=== PATIENT | female | born 1975 | race Caucasian/White ===

== ENCOUNTER 2022-03-11 14:20 | Emergency (ER) | payer MEDICAID, SELFPAY ==
[2022-03-11 14:26] VITALS: BP 143/90; PULSE 118; RESP 16; TEMP 36.5; O2SAT 97
[2022-03-11 14:36] LABS: Bilirubin Small (Negative); Blood Large (Negative); Clarity Clear (Clear); Glucose Negative (Negative); Ketones 40 mg/dL (Negative); Leukocyte Esterase Negative (Negative); Nitrite Negative (Negative); Specific Gravity >= 1.030 (1.005-1.025); Urobilinogen 0.2 EU/dL (Up TO 0.2)
--- NOTE | 2022-03-11 14:39 | ED.GENADUL_ITS ---
Discharge Plan Disposition Patient Disposition: STILL A PATIENT Discharge Details Chief Complaint: Abd Prob Primary Care Provider: Tan Fisher ED Provider: Wayne Ndiaye Home Meds and New Rx's Prescriptions: No Action No Known Home Meds 0RF Medical Decision Making 46-year-old female reports diffuse abdominal pain, nausea, vomiting, diarrhea, intermittent cramping since , ate half a hamburger that day but did not believe the food was bad. She took [id number] Pepto-Bismol yesterday. No vomiting today. Denies patient's exposures. She states that this occurs occasionally every couple of years, has been seen in the ER previously, but after discharge and feeling better has never followed up with a GI specialist. She denies recent illness or trauma, fever, chest pain, shortness of breath, back pain, dysuria, constipation, black tarry stools or bright red blood in her stools. She reports at the moment she has no cramping abdominal pain but it comes in waves. Plan is to obtain IV access, screening laboratory values, IV fluid and Zofran. We will need to monitor her tachycardia, symptoms, and may require imaging. Laboratory values reveal minor, nonspecific leukocytosis of 11.44. Creatinine 1.2 with a GFR of 48.58. 40 ketones, large blood, 20-50 red cells. Patient does report that she currently has her menstrual cycle. Denies history of renal stone. Will provide another liter of IV fluids, Toradol, Bentyl as she reports cramping is persistent. Given her persistent tachycardia, leukocytosis, will obtain CT imaging Medical Records Medical records reviewed: Yes I reviewed the patient's medical records. Lab Data Lab results reviewed: Yes I reviewed the patient's lab results. Labs: Laboratory Tests Range/Units 03/11/22 03/11/22 03/11/22 14:28 14:33 14:33 WBC (4.4-10.8) 10^3/uL 11.44 H RBC (3.93-5.22) 10^6/uL 4.60 Hgb (11.2-15.7) g/dL 15.3 Hct (36.0-46.0) % 44.8 MCV (80-95) fL 97.4 H MCH (27.0-33.0) pg 33.3 H MCHC (32.0-36.0) % 34.2 RDW (11.7-14.6) % 12.5 Plt Count (130-400) 10^3/uL 259 MPV (8.0-11.0) fL 9.5 Immature Gran % 0.3 Neutrophils % 71.6 Lymphocytes % 19.3 Monocytes % 6.1 Eosinophils % 2.5 Basophils % 0.2 Nucleated RBC % (0.0-0.3) % 0.0 Absolute Neutrophils (1.2-6.7) 10^3/uL 8.19 H Absolute Lymphocytes (1.2-3.4) 10^3/uL 2.21 Absolute Monocytes (0.1-0.8) 10^3/uL 0.70 Absolute Eosinophils (0.0-0.7) 10^3/uL 0.29 Absolute Basophils (0.0-0.2) 10^3/uL 0.02 Sodium (136-145) mmol/L 137 Potassium (3.5-5.1) mmol/L 3.7 Chloride (98-107) mmol/L 102 Carbon Dioxide (21.0-32.0) mmol/L 24.1 Anion Gap (3-11) mmol/L 10.9 BUN (7-18) mg/dL 10 Creatinine (0.55-1.02) mg/dL 1.2 H Estimated GFR/1.73 m2 (mL/min/1.73m2) 48.58 Glucose (74-106) mg/dL 114 H Calcium (8.5-10.1) mg/dL 8.8 Total Bilirubin (0.2-1.0) mg/dL 0.5 AST (15-37) U/L 19 ALT (14-59) U/L 34 Alkaline Phosphatase (46-116) U/L 61 Total Protein (6.4-8.2) g/dL 7.5 Albumin (3.4-5.0) g/dL 3.6 Lipase (73-393) U/L 51 Urine Color (Yellow) Yellow Urine Clarity (Clear) Clear Urine pH (5-8) 6.0 Ur Specific [place] (1.005-1.025) >= 1.030 H Urine Protein (Negative) mg/dL 30 H Urine Ketones (Negative) mg/dL 40 H Urine Blood (Negative) Large H Urine Nitrite (Negative) Negative Urine Bilirubin (Negative) Small H Urine Urobilinogen (Up TO 0.2) EU/dL 0.2 Ur Leukocyte Esterase (Negative) Negative Urine RBC (0-2) HPF 20-50 H Urine WBC (0-5) HPF 0-2 Ur Epithelial Cells (Negative) HPF Few Urine Crystals (Negative) HPF Negative Urine Bacteria (Negative) HPF Few Urine Casts (Negative) LPF Negative Urine Mucus (Negative) Moderate Ur Culture Indicated? No Urine Glucose (Negative) mg/dL Negative HPI General Mode of arrival: ambulatory . Date/Time Provider Initiated Documentation: 03/11/22 14:23 . Limitations to Documentation: no limitations . Information obtained by: patient . History of Present Illness 46 year old F presents to the emergency department with the chief complaint of abd pain n/v/d, described as moderate, with intensity rated at 7. Quality is described as aching (cramping), and is localized to the abdomen (all over). Patient reports no radiation. Patient started experiencing this day(s) (4) and it has been intermittent. improves with No relieving factors improve symptom(s), No exacerbating factors reported . Patient notes nausea/vomiting. Patient did receive the following treatments prior to arrival, other (Pepto-Bismol yesterday) Related Data Home Medications Medication Instructions Recorded Confirmed Unknown [No Known Home Meds] 03/11/22 03/11/22 Allergies Allergy/AdvReac Type Severity Reaction Status Date / Time HAY FEVER Allergy Mild HEAD Uncoded 03/11/22 14:31 CONGESTION General Stated Complaint: Abd Prob AALIYAH: 3 Review of Systems Constitutional Constitutional: Denies fever(s) and Denies weakness Cardiovascular Cardiovascular: Denies chest pain and Denies dyspnea Respiratory Respiratory: Denies cough and Denies dyspnea Gastrointestinal Gastrointestinal: Reports abdominal pain, Denies melena, Denies hematochezia, Reports diarrhea, Reports nausea and Reports vomiting (none today) Genitourinary Genitourinary: Denies abnormal vaginal bleeding, Denies dysuria and Denies vaginal discharge Musculoskeletal Musculoskeletal: Denies back pain Integumentary/Breasts Skin/Breast: Denies rash Neurologic Neurologic: Denies weakness PFSH Social History Smoking/Tobacco Use Status: Current every day Tobacco Type: cigarettes Smoking risk assessment performed?: Yes Drug use: Never Exam Const General: cooperative, healthy appearing, comfortable and no acute distress Orientation: alert and awake HENCA Head: normal to inspection, normocephalic and atraumatic Mouth: moist mucous membranes abnormal (dry) Eyes General: appearance normal, both eyes and all related structures Conjunctivae: conjunctivae normal Neck Neck: normal visual inspection, full ROM, trachea midline and supple Resp Effort & Inspection: normal respiratory effort and able to speak in complete sentences Auscultation: clear to auscultation bilaterally Cardio Rate: tachycardic (112) Rhythm: regular rhythm GI Inspection: normal to inspection and obesity Palpation: soft, not firm, no guarding, no pulsatile masses and tender (Mild in nature) in the epigastrum, in the LLQ, in the RLQ, in the LUQ and in the RUQ; Negative for with no rebound tenderness Auscultation: normal bowel sounds Back/Spine/Pelvis Back: No back tenderness Skin General skin exam: no rashes or lesions noted Neuro General: patient alert, patient awake, moves all extremities and no focal motor deficits Cognition: normal cognition Speech: speech normal Gait: normal gait Sensory Exam: no sensory deficits noted Psych Appearance: grossly normal Mental Status: mental status grossly normal Course Vital Signs Vital signs: Vital Signs Temperature 36.5 C 03/11/22 14:26 Pulse 118 H 03/11/22 14:26 Respiratory Rate 16 03/11/22 14:26 Blood Pressure 143/90 H 03/11/22 14:26 Pulse Oximetry 97 03/11/22 14:26 Temperature 36.5 C 03/11/22 14:26 Temperature Source Temporal Artery Scan 03/11/22 14:26 Pulse 118 H 03/11/22 14:26 Respiratory Rate 16 03/11/22 14:26 Respiratory Effort 03/11/22 14:26 Blood Pressure 143/90 H 03/11/22 14:26 Blood Pressure Position Sitting 03/11/22 14:26 Pulse Oximetry 97 03/11/22 14:26 Oxygen Delivery Method Room Air 03/11/22 14:26 Oxygen Flow Rate 0 03/11/22 14:26 Pain Level 10 03/11/22 14:26 Lab/Test Results Lab/Test Results: Laboratory Tests Range/Units 03/11/22 14:28 Urine Color (Yellow) Yellow Urine Clarity (Clear) Clear Urine pH (5-8) 6.0 Ur Specific [place] (1.005-1.025) >= 1.030 H Urine Protein (Negative) mg/dL 30 H Urine Ketones (Negative) mg/dL 40 H Urine Blood (Negative) Large H Urine Nitrite (Negative) Negative Urine Bilirubin (Negative) Small H Urine Urobilinogen (Up TO 0.2) EU/dL 0.2 Ur Leukocyte Esterase (Negative) Negative Urine Glucose (Negative) mg/dL Negative POC- Test(urine) Negative PAWSS Have you Been Recently Intoxicated or Drunk Within the Last 30 days?: Yes Have you Ever Experienced Previous Episodes of Alcohol Withdrawal?: No Have you ever Experienced Withdrawal Seizures?: No Have you ever Experienced Delirium Tremens(DT)s?: No Have you ever undergone Alcohol Rehabilitation Treatment (i.e, inpt ot outpatient treatment programs)?: No Have you ever Experienced Blackouts?: Yes Have you ever Combined Alcohol with other Downers within the last 90 days?: No Have you ever Combined Alcohol with any other Substance of Abuse during the last 90 days?: No Positive Blood Alcohol level on Presentation? [PCS.BAL]: Yes Evidence of Increased Autonomic Activity (i.e. HR>120, tremor, sweating, agitation, nausea)?: Yes Result: 4
[2022-03-11 14:42] LABS: Epithelial Cells Few HPF (Negative); RBC 20-50 HPF (0-2); WBC 0-2 HPF (0-5)
[2022-03-11 14:43] LABS: Bacteria Few HPF (Negative); C & S Indicated? No; Casts Negative LPF (Negative); Crystals Negative HPF (Negative); Mucus Moderate (Negative)
[2022-03-11 14:57] LABS: Abs Immature Grans 0.04 10^3/uL (0.0-0.06); Absolute Basophil Count 0.02 10^3/uL (0.0-0.2); Absolute Eosinophil Count 0.29 10^3/uL (0.0-0.7); Absolute Lymphocyte Count 2.21 10^3/uL (1.2-3.4); Absolute Neutrophil Count 8.19 10^3/uL (1.2-6.7); Basophils % 0.2; Eosinophils % 2.5; HCT 44.8 % (36.0-46.0); HGB 15.3 g/dL (11.2-15.7); Immature Grans % 0.3; Lymphocytes % 19.3; MCH 33.3 pg (27.0-33.0); MCHC 34.2 % (32.0-36.0); MCV 97.4 fL (80-95); MPV 9.5 fL (8.0-11.0); Monocytes % 6.1; Neutrophils % 71.6; Platelet Count 259 10^3/uL (130-400); RDW 12.5 % (11.7-14.6); WBC 11.44 10^3/uL (4.4-10.8)
--- NOTE | 2022-03-11 15:00 | DI.CT_ITS ---
Exam(s) CT ABDOMEN PELVIS W EXAM: CT ABDOMEN PELVIS W CLINICAL HISTORY: abd pain , n/v/d. TECHNIQUE: Imaging Protocol: Axial computed tomography images with coronal and sagittal reformatted images were created and reviewed CONTRAST MATERIAL: Intravenous: Omnipaque 100cc Oral: None COMPARISON: CT ABD PELVIS WO CONTRAST from 07/13/2011 FINDINGS: VISUALIZED LUNG BASES: Mild benign-appearing increased markings in the right lung base. No pleural e ffusions.. ABDOMEN: There is perihepatic ascites now evident as well as mild-moderate free fluid in the pelvis. LIVER: There are no focal hepatic lesions evident. No dilatation of intrahepatic ducts GALLBLADDER/BILIARY: No obvious gallbladder pathology. CBD is not dilated. PANCREAS: No evidence of pancreatic mass nor dilatation of the pancreatic duct. SPLEEN: Spleen is not enlarged. No obvious intrasplenic lesions. Single calcified splenic granuloma again noted. Splenic and portal veins are patent. ADRENALS: There are no significant adrenal masses. KIDNEYS:No cysts evident. No solid renal masses. No calculi nor hydronephrosis.. ABDOMINAL AORTA: Abdominal aorta is not enlarged. LYMPH NODES:There is no retroperitoneal nor paraaortic adenopathy. ABDOMINAL WALL: No evidence of significant anterior abdominal wall nor inguinal hernia. GI: There is an abnormal diffuse ileitis pattern of the distal jejunal and all of the ileal loops whi ch exhibits circumferential wall thickening of 4 millimeters and this extending to and involving the distal most terminal ileum. There does not appear to be an associated stricture nor bowel obstructio n. There may be mild involvement of the ascending-right colon. There is comb sign in the mesentery of these affected bowel loops and there are multiple small sub cm lymph nodes noted in the mesentery. There is no evidence of appendicitis although there does appear to be in a appendicular lith measurin g 3 millimeters in the appendix.. PELVIS: GI: Appendix as above. LYMPH NODES: There is no intrapelvic nor inguinal adenopathy. REPRODUCTIVE: Uterus and ovaries unremarkable although there is some free fluid in the dependent aspe ct of the pelvis but this is related to the small bowel abnormalities. URINARY BLADDER: No calculi nor obvious masses evident OSSEOUS: No significant osseous lesions. Sacroiliac joints unremarkable. IMPRESSION: 1. There is an abnormal diffuse small bowel pattern as described above with additional comb sign in t he adjacent mesenteric vessels as well as mild ascites. This is most probably related to Crohn's dis ease, particularly when reviewing the prior CT scan of June 2011. 2. Appendicalith noted but no evidence of acute appendicitis. RADIATION DOSE DELIVERED: 1,267.92mGy.cm Total DLP DATA REPOSITORY: All CT scans at this facility are submitted to the National Radiology Data Registry (NRDR) Dose Index Registry (DIR) with the [employer] ([employer]). RADIATION OPTIMIZATION: All CT scans at this facility use at least one of these dose optimization te chniques: automated exposure control; mA and/or kV adjustment per patient size (includes targeted exa ms where dose is matched to clinical indication); or iterative reconstruction.
[2022-03-11] MEDS: Normal Saline 1,000 ML 1000 ML IV ×2 (15:02→15:58)
[2022-03-11 15:09] LABS: ALT 34 U/L (14-59); AST 19 U/L (15-37); Albumin 3.6 g/dL (3.4-5.0); Alkaline Phosphatase 61 U/L (46-116); Anion Gap 10.9 mmol/L (3-11); BUN 10 mg/dL (7-18); Bilirubin, Total 0.5 mg/dL (0.2-1.0); CO2 24.1 mmol/L (21.0-32.0); CREATININE 1.2 mg/dL (0.55-1.02); Calcium 8.8 mg/dL (8.5-10.1); Chloride 102 mmol/L (98-107); Estimated GFR 48.58 (mL/min/1.73m2); Glucose 114 mg/dL (74-106); Lipase 51 U/L (73-393); Potassium 3.7 mmol/L (3.5-5.1); Sodium 137 mmol/L (136-145); Total Protein 7.5 g/dL (6.4-8.2)
[2022-03-11] MEDS: Omnipaque 350 MG/ML 100 ML BTL IJ (15:46)
[2022-03-11] MEDS: Normal Saline Flush 10 ML SYR IVP (15:50)
[2022-03-11] MEDS: Ondansetron 4 MG/2 ML VIAL IVP (16:05)
[2022-03-11 16:06] VITALS: BP 163/83; PULSE 80; RESP 22; TEMP 36.6; O2SAT 100
[2022-03-11] MEDS: Ketorolac 30 MG/ML VIAL IVP (16:06)
--- NOTE | 2022-03-11 16:17 | DI.VRAD_ITS ---
PROCEDURE INFORMATION: Exam: CT Abdomen And Pelvis With Contrast Exam date and time: 03/11/2022 3:44 PM Age: 46 years old Clinical indication: Other: Abd pain , n/v/d TECHNIQUE: Imaging protocol: Computed tomography of the abdomen and pelvis with contrast. Contrast material: OMNIPAQUE 350; Contrast volume: 100 ml; Contrast route: INTRAVENOUS (IV); COMPARISON: CR ABD FLAT UPRIGHT PA CHEST 09/30/2015 17:53 FINDINGS: Liver: Normal. No mass. Gallbladder and bile ducts: Normal. No calcified stones. No ductal dilation. Pancreas: Normal. No ductal dilation. Spleen: Punctate splenic calcification. Adrenal glands: Normal. No mass. Kidneys and ureters: Normal. No hydronephrosis. Stomach and bowel: Diffuse small bowel wall thickening with infiltration of the mesenteric fat with the comb sign. Appendix: No evidence of appendicitis. Intraperitoneal space: Free fluid in the pelvis. Ascites around the liver. Arteries: Mild atherosclerotic disease. Lymph nodes: Shotty mesenteric lymph nodes. Urinary bladder: Unremarkable as visualized. Reproductive: Unremarkable as visualized. Bones/joints: Unremarkable. No acute fracture. Soft tissues: Unremarkable. IMPRESSION: Abnormal diffuse small bowel thickening, comb sign, infiltration of the mesentery, and ascites seen with inflammatory process (Crohn's disease), infectious, or a vascular etiology. Dictated and Authenticated by: Viola Perez MD. Ordering:BENITA Black MD
[2022-03-11] MEDS: Dicyclomine 20 MG TAB PO (16:23)
[2022-03-11] MEDS: MORPHine 4 MG/ML SYR IVP (18:10)
[2022-03-11 18:17] VITALS: BP 134/70; PULSE 78; RESP 18; TEMP 36.6; O2SAT 97
[2022-03-11] MEDS: metroNIDAZOLE 500 MG TAB PO (18:33)
[2022-03-11] MEDS: Ciprofloxacin 500 MG TAB PO (18:33)
[2022-03-11] MEDS: Ondansetron O.D.T. 4 MG TABEF, 3 TABS/BTL PO (18:34)
--- NOTE | 2022-03-11 20:16 | NUR.NOTE ---
STOOL KIT SENT HOME WITH PT Nursing Note:
== END 2022-03-11 19:05 | disposition home or self-care (01) ==
PROVIDERS: Physician Assistant; Emergency Provider Physician Assistant; PCP Internal Medicine
DX: E86.0 Dehydration (principal); K52.9 Noninfective gastroenteritis and colitis, unspecified; R00.0 Tachycardia, unspecified; D72.829 Elevated white blood cell count, unspecified; R11.2 Nausea with vomiting, unspecified; R19.7 Diarrhea, unspecified
CPT/HCPCS: 80053; 81025; 83690; 96361; 96374; 96375; 99285; 74177; 81003; 81015; 85025; 99284; J1885; J2270; J2405; J3490

== ENCOUNTER → 2023-11-14 14:03 | Outpatient (CLI) | payer MEDICAID, SELFPAY ==
--- NOTE | 2023-11-14 | DI.US_ITS ---
Exam(s) US LOWER EXTREMITY VENOUS LT EXAM: US LOWER EXTREMITY VENOUS LT CLINICAL HISTORY: SWELLING, R22.40,STRUCK,INCREASING PAIN,? BLOOD CLOT TECHNIQUE: Left lower extremity venous ultrasound performed using grayscale, color-flow, and spectra l Doppler analysis. COMPARISON: No exams were available for comparison FINDINGS: The left common femoral, femoral and popliteal veins demonstrate normal compressibility, augmentation , and color Doppler. The posterior tibial and peroneal veins are patent. The saphenofemoral junction is unremarkable. There is no evidence of a Ruvalcaba cyst. The soft tissues are unremarkable. IMPRESSION: No evidence of a left lower extremity DVT. DATA REPOSITORY:
--- NOTE | 2023-11-14 14:43 | DI.RAD_ITS ---
Exam(s) XR KNEE LT 3V AP,LAT,YIMI EXAM: XR KNEE LT 3V AP,LAT,YIMI CLINICAL HISTORY: PAIN IN LT KNEE M25.562. TECHNIQUE: 2D digital imaging was performed of the left knee. Three images were obtained. AP, late ral and PA tunnel views were obtained. COMPARISON: No priors for comparison. FINDINGS: BONES: No acute fracture is present. No bony destructive lesion is seen. JOINTS: The knee is normally aligned. No joint effusion is seen. No loose body. SOFT TISSUE: Normal. IMPRESSION: Normal radiographs of the left knee. DATA REPOSITORY: RADIATION DOSE DELIVERED:
== END ==
PROVIDERS: PCP Internal Medicine; Visit Provider Physician Assistant Medical
DX: M25.562 Pain in left knee (principal); R22.42 Localized swelling, mass and lump, left lower limb
CPT/HCPCS: 73562; 93971